=== PATIENT | male | born 1995 | race African-American/Black ===

== ENCOUNTER 2018-10-03 23:13 | Emergency (ER) | payer OTHER, SELFPAY ==
[~2018-10-03] VITALS: Ht 188 cm; Wt 113.4 kg
[~2018-10-03 23:13] MED LIST: DICY10CA53 PO; ONDA4TAB7 PO; POLY10DR EACHEYE
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
[2018-10-03] MEDS ORDERED: LIDOCAINE 2% 20 ML VIAL. IJ ONE (23:45)
[2018-10-03] MEDS ORDERED: MORPHINE SULFATE 4 MG/ML VIAL. IM ONE (23:45)
[2018-10-04] MEDS ORDERED: PROPOFOL 20 ML IV ONE ×2 (00:09→00:25)
[2018-10-04 00:16] VITALS: BP 177/111
--- NOTE | 2018-10-04 00:33 | PHYS DOC ---
MODERATE SEDATION ASSESSMENT RISKS/ALTERNATIVES Risks/Alternatives Risks and alternatives of this type of sedation and procedure discussed with: RISK/ALTERNATIVES: Patient H & P ON CHART H & P H & P on chart and reviewed for co-morbid conditions and appropriate labs. H&P ON CHART: Yes STATUS PREG STATUS ASSESSED: N/A MEDS/ALLERGIES REVIEWED Meds/Allergies Reviewed Medications and Allergies including time and route of recently administered narcotics and sedatives. MEDS/ALLERGIES REVIEWED: Yes ASA RATING ASA RATING: I AIRWAY ASSESSMENT Airway Assessment Airway patency, oral function limitations, presence of caps, crowns, dentures, partials, and ability to extend neck assessed. AIRWAY ASSESSMENT: Yes MALLAMPATI SCORE MALLAMPATI SCORE: I PRE-SEDATION ASSESSMENT PRE-SEDATION ASSESSMENT: Yes JAYCEE CORONEL MD October 04, 2018 00:33
[2018-10-04] MEDS ORDERED: MORPHINE SULFATE 4 MG/ML VIAL. IV ONE (01:30)
[2018-10-04 01:45] VITALS: BP 173/107
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
== END 2018-10-04 02:15 | disposition short-term general hospital (02) ==
LOC: ER 23:13
DX: S63.261A Dislocation of metacarpophalangeal joint of left index finger, initial encounter (principal); S63.263A Dislocation of metacarpophalangeal joint of left middle finger, initial encounter; S62.635A Displaced fracture of distal phalanx of left ring finger, initial encounter for closed fracture; S62.637A Displaced fracture of distal phalanx of left little finger, initial encounter for closed fracture; S62.615A Displaced fracture of proximal phalanx of left ring finger, initial encounter for closed fracture; V49.59XA Passenger injured in collision with other motor vehicles in traffic accident, initial encounter; Y93.89 Activity, other specified; Y92.488 Other paved roadways as the place of occurrence of the external cause; Y99.8 Other external cause status
CPT/HCPCS: 26700; 73130; 96372; 96374; 99285; J2001; J2270; 99152